=== PATIENT | female | born 1980 | race Caucasian/White ===

== ENCOUNTER 2017-08-07 21:40 | Emergency (ER) | payer SELFPAY ==
[~2017-08-07] VITALS: Ht 170.2 cm; Wt 54.4 kg
[2017-08-07 21:40] VITALS: BP 132/67
[2017-08-07] MEDS ORDERED: CEPH-264 PO (21:56)
--- NOTE | 2017-08-07 21:57 | PHYS DOC ---
Adult General Chief Complaint Chief Complaint: FINGER INJURY HPI HPI Patient is a 36 year old female presents to the emergency department with complaints of a redness and swelling cuticle of the right index finger. Patient states she's had symptoms for 3 days. States that she gets these frequently. Review of Systems Review of Systems Constitutional: Denies fever or chills [] Eyes: Denies change in visual acuity, redness, or eye pain [] HENT: Denies nasal congestion or sore throat [] Respiratory: Denies cough or shortness of breath [] Cardiovascular: No additional information not addressed in HPI [] GI: Denies abdominal pain, nausea, vomiting, bloody stools or diarrhea [] : Denies dysuria or hematuria [] Musculoskeletal: Right index finger discomfort Integument: Denies rash or skin lesions [] Neurologic: Denies headache, focal weakness or sensory changes [] Endocrine: Denies polyuria or polydipsia [] All other systems were reviewed and found to be within normal limits, except as documented in this note. Physical Exam Physical Exam Extremities: Right index finger medial aspect, paronychia. Remainder hand exam unremarkable. EKG EKG [] Radiology/Procedures Radiology/Procedures [] Course & Med Decision Making Course & Med Decision Making Pertinent Labs and Imaging studies reviewed. (See chart for details) []Patient refused to allow for draining of the paronychia. She began to cry, hyperventilate and pull her hand away. She would not sit still and allow for cleaning or drainage of the paronychia. She was discharged home to follow-up with her primary care provider. I did ask her to do Epson salt soaks. Dragon Disclaimer Dragon Disclaimer This electronic medical record was generated, in whole or in part, using a voice recognition dictation system. Departure Departure Impression: Primary Impression: Paronychia Disposition: 01 HOME, SELF-CARE Condition: STABLE Referrals: [facility] Patient Instructions: Paronychia Additional Instructions: Epson salt soaks 4 times a day Scripts Cephalexin (KEFLEX) 500 Mg Capsule 1 CAP PO TID, #21 CAP Prov: SUSHIL CASTILLO APRN 08/07/17 SUSHIL CASTILLO APRN Aug 07, 2017 21:57
== END 2017-08-07 21:52 | disposition home or self-care (01) ==
LOC: ER 21:40
DX: L03.011 Cellulitis of right finger (principal)
CPT/HCPCS: 99283